=== PATIENT | male | born 1960 | race Caucasian/White ===

== ENCOUNTER 2019-02-13 12:42 | Emergency (ER) | payer SELFPAY ==
[~2019-02-13] VITALS: Ht 165.1 cm; Wt 69.7 kg
[2019-02-13 12:48] VITALS: BP 139/78; PULSE 60; RESP 16; Ht 165.1 cm; Wt 69.7 kg
== END 2019-02-13 18:29 | disposition left against medical advice (07) ==
LOC: E/R 12:42
DX: Z53.21 Procedure and treatment not carried out due to patient leaving prior to being seen by health care provider (principal)
CPT/HCPCS: 93005